=== PATIENT | male | born 2000 | race Caucasian/White ===

== ENCOUNTER 2019-05-31 22:27 | Emergency (ER) | payer OTHER ==
[~2019-05-31] VITALS: Ht 167.6 cm; Wt 83.0 kg
[2019-05-31 22:33] VITALS: BP 111/69; Ht 167.6 cm; Wt 83.0 kg
== END 2019-06-01 00:15 | disposition home or self-care (01) ==
LOC: ED 22:27
DX: L05.91 Pilonidal cyst without abscess (principal)
CPT/HCPCS: J2001